=== PATIENT | male | born 1945 | race Two or more races ===

== ENCOUNTER 2024-02-23 18:58 | Emergency (ER) | payer OTHER ==
[~2024-02-23] VITALS: Ht 165.1 cm; Wt 84.8 kg
[2024-02-23] MEDS ORDERED: BUPROPION HCL150 MG PO (19:39)
[2024-02-23] MEDS ORDERED: DOXAZOSIN MESYLA2 MG PO (19:39)
[2024-02-23] MEDS ORDERED: ATORVASTATIN CA40 MG PO (19:39)
[2024-02-23] MEDS ORDERED: ZANAFLEX2 M1 PO (19:39)
[2024-02-23] MEDS ORDERED: INNOPRAN XL120 MG PO (19:40)
[2024-02-23] MEDS ORDERED: BENICAR40 MG PO (19:40)
[2024-02-23] MEDS ORDERED: AMLODIPINE-OLM1 EAC2 PO (19:40)
[2024-02-23] MEDS ORDERED: HYDROCHLOROTH12.5 MG PO (19:41)
[2024-02-24] MEDS ORDERED: LABETALOL HCL 20MG/4ML SYRINGE IV STA (01:16)
[2024-02-24 01:38] LABS: URINE APPEARANCE Clear; URINE BILIRRUBIN Negative (NEGATIVE); URINE BLOOD Negative; URINE COLOR Yellow; URINE GLUCOSE Negative (NEGATIVE); URINE LEUKOCYTE Negative; URINE NITRATE Negative; URINE PROTEIN Negative (NEGATIVE); URINE UROBILINOGEN 0.2 E.U./dl
[2024-02-24 01:42] LABS: URINE RBC 3.3 uL (0.0-20.8); URINE WBC 1.9 uL (0.0-23.2)
[2024-02-24 01:53] LABS: URINE EPITHELIAL CELLS 0.3 uL (0.0-38.8)
[2024-02-24 01:59] LABS: HEMATOCRIT 43.1 % (39.0-48.0); HEMOGLOBIN 15.1 g/dL (13-16.00); MEAN CELL VOLUME 90.5 fL (80.0-100.00); MEAN CORPUSCULAR HEMOGLOBIN 31.8 pg (27.00-32.0); MEAN CORPUSCULAR HGB CONC 35.1 g/dl (32.0-36.0); PLATELET COUNT 174 K/uL (150-450); RED BLOOD COUNT 4.76 M/uL (4.00-6.00); RED CELL DISTRIBUTION WIDTH 13.5 % (11.5-14.5)
[2024-02-24 02:08] LABS: ALBUMIN 4.4 gm/dL (3.4-5.0); BILIRUBIN TOTAL 0.4 mg/dL (0.3-1.2); CALCIUM 9.3 mg/dL (8.5-10.1); CREATININE SERUM 1.03 mg/dL (0.70-1.30); GFR 69.66; GLOBULINA 3.6 G/DL (2.4-3.5); POTASSIUM 3.76 mEq/L (3.5-5.1)
== END 2024-02-24 06:27 | disposition home or self-care (01) ==
LOC: ER 18:58
DX: R51.9 Headache, unspecified (principal); I10 Essential (primary) hypertension
CPT/HCPCS: 36415; 70450; 96365; 99284; J3490